=== PATIENT | female | born 1950 | race Caucasian/White ===

== ENCOUNTER 2017-05-24 19:48 | Inpatient (IN) | payer OTHER ==
[~2017-05-24] VITALS: Ht 160 cm; Wt 58.2 kg
--- NOTE | ~2017-05-24 | HC ---
[facility] [place] [address] CONSULTATION Name: NABIL TAFOYA Room #: 443-P [facility] IN M.R.#: [id number] Admission: 05/24/17 Attend Phys: Tarun Agosto DO Discharge: 05/30/17 Date of : 50 Report #: [id number] THIS REPORT FOR: //name// CC: Minda Agosto HISTORY OF PRESENT ILLNESS: This patient is seen regarding abnormal chest CT/likely bronchogenic carcinoma. This 66-year-old white female was transferred from [facility] to further evaluate abnormal chest CT and has undergone bronchoscopy today by Dr. Gutierrez. This reveals endobronchial lesion compatible with malignancy and it has been biopsied, with the results pending at the time of this dictation. Her history is significant for one half to 1 pack of cigarettes daily for the last 50 years. Over the last year, she has lost approximately 60 pounds. She has recently noted increased cough and shortness of breath associated with intermittent speckled hemoptysis. PAST MEDICAL HISTORY: Significant also for prior herniated disk and thoracic spine surgery. She has 3 previous sections. ALLERGIES: SHE IS ALLERGIC TO QUININE AND SULFA, CAUSING HIVES. MEDICATIONS: Include BuSpar, Celexa, Cozaar and Ditropan as listed on the MFR. FAMILY HISTORY: Positive for her father who had what sounds like pulmonary embolism. SOCIAL HISTORY: She is , has 8 children. She lives in [place] and again is a smoker. REVIEW OF SYSTEMS: Negative for any new suspicious palpable masses or pain. PHYSICAL EXAMINATION: HEENT: Shows to be normocephalic. NECK: Supple. CHEST: Shows diminished breath sounds. CARDIOVASCULAR: Normal S1, S2. ABDOMEN: No organomegaly or mass. EXTREMITIES: No clubbing, cyanosis or edema. NEUROLOGIC: No focal localizing signs. PSYCHIATRIC: Not agitated or confused. SKIN: Normal turgor. HOSPITAL COURSE: CT scan shows a large mediastinal mass. ASSESSMENT: At least stage III, likely a bronchogenic carcinoma. [facility] [address] [place] [address] CONSULTATION Name: NABIL TAFOYA Room #: 443-P [facility] IN M.R.#: [id number] Admission: 05/24/17 Attend Phys: Tarun Agosto DO Discharge: 05/30/17 Date of : 50 Report #: [id number] PLAN: We will need to await histology. If this represents small cell lung cancer, we will need to proceed quickly with chemotherapy. If non-small cell lung cancer, awaiting marker studies regarding possible targetable mutation. She needs to be scanned further regarding pathology to rule out other sites of metastatic disease and to complete her staging if lung cancer diagnosis is confirmed. Thanks again for allowing me to see her in consultation and asking me to participate in her care. <ELECTRONICALLY SIGNED> By: Grace Sheikh MD 06/12/17 1239 1629 2315 MD frank Mendoza
--- NOTE | ~2017-05-24 | H ---
[facility] [place] [address] HISTORY AND PHYSICAL Name: NABIL TAFOYA Room #: 443-P ADM IN M.R.#: [id number] Admission: 05/24/17 Attend Phys: Tarun Agosto DO Discharge: Date of : 50 Report #: [id number] THIS REPORT FOR: //name// CC: Minda Agosto ATTENDING PHYSICIAN: Dr. Perales. PRIMARY CARE PHYSICIAN: Minda Rivera DO. CHIEF COMPLAINT: Mediastinal mass. HISTORY OF PRESENT ILLNESS: The patient is a 66-year-old female who was initially sent by her PCP to [place] [facility] due to elevated white blood cell count as well as pneumonia. She has been having a cough for the last 2-3 weeks and had been on oral antibiotics without much improvement. She had a chest x-ray done yesterday showing pneumonia and her white blood cell count was 21,000. She had not been having any fevers or chills. She denied any chest pain with deep breathing. She really was not having any shortness of breath. Her cough was productive with some pale yellow sputum. In the last few days though, she did have a few episodes of pink-tinged sputum. She denies any underlying lung disease such as COPD, but has been a lifelong smoker. In the ER at [place], she was evaluated and was noted to have mildly elevated D-dimer, so she was sent for a CT angio of the chest, which showed a large mediastinal mass that partially obstructs the right main bronchus causing some postobstructive atelectasis and pneumonia. She was given IV antibiotics and sent to [facility] for further cardiothoracic evaluation. She is not in any respiratory distress. PAST MEDICAL HISTORY: Arthritis, GERD, depression, MRSA skin infection, hypertension. PAST SURGICAL HISTORY: times 3, appendectomy, D and C, bilateral cataract repair. ALLERGIES: QUININE AND SULFA. HOME MEDICATIONS: Diovan, BuSpar, Lexapro, ranitidine, oxybutynin. SOCIAL HISTORY: The patient smokes one-half to one pack of cigarettes per day. She has been smoking since the age of 14 or 15. Denies any alcohol or drug use. She lives at home with her spouse. FAMILY HISTORY: Negative for any type of cancer. Her mother had heart problems, but of old age, natural causes at the age of 89. Her father at the age of 50 from an ID. [facility] [address] [place] [address] HISTORY AND PHYSICAL Name: NABIL TAFOYA Room #: 443-P [facility] IN [facility].#: [id number] Admission: 05/24/17 Attend Phys: Tarun Agosto DO Discharge: Date of : 50 Report #: [id number] REVIEW OF SYSTEMS: Twelve point review of systems was reviewed with the patient, otherwise negative unless stated in the HPI. PHYSICAL EXAMINATION: GENERAL: The patient is an alert female in no acute distress. VITAL SIGNS: Temperature is 97.9, heart rate 112, respirations 19, blood pressure 140/83, oxygen 99% on room air. HEENT: PERRLA. Sclerae nonicteric. Oral mucosa is pink and moist. She does have very poor oral dentition with many missing or broken teeth. NECK: Supple, no JVD noted. CARDIOVASCULAR: Normal S1, S2. No murmurs, rubs or gallops. RESPIRATORY: Breath sounds are clear in bilateral upper lobes and the left lobe, but she is very diminished in the right lower lobe. Breathing is nonlabored. She does have a frequent cough. ABDOMEN: Soft, nontender, nondistended with positive bowel sounds. VASCULAR: No edema noted. Pedal pulses are 2+. NEUROLOGIC: The patient is alert and oriented times 3. Speech is clear. She is answering questions appropriately and following commands. No focal neuro deficits noted. SKIN: Intact. No rashes or lesions. LABORATORY DATA AND DIAGNOSTICS: WBC is 23, hemoglobin 10.5, platelets 609. Sodium 126, potassium 3.2, BUN 9, creatinine is 0.6 and glucose 101. Lactate is 1.2. BNP is 1190, calcium level is 10.5. LFTs are within normal limits. Troponins negative. CT angio of the chest was negative for PE. It did show complete atelectasis of the right lower lobe with a partial atelectasis of the right middle lobe with patchy opacities in the right middle lobe, likely postobstructive atelectasis versus pneumonia. There is a large mass in the subcarinal area measuring 8 x 5.6 x 5.7 cm, which partially encases the anterior aspect of the mid to distal trachea and bilateral main bronchus in the right upper lobe pulmonary artery and obliterates the right main bronchus and right middle lobe bronchus. EKG shows no acute findings. ASSESSMENT AND PLAN: 1. Large mediastinal mass. Per radiology, this mass should be able to reach by bronchoscopy, so pulmonary will be consulted. She will need a bronchoscopy for biopsy. It is likely lymphoma versus a primary lung cancer. 2. Postobstructive pneumonia. The patient did have a reaction to Zithromax at [place], so we will start Zosyn and continue to monitor. Check sputum and blood cultures. 3. Ongoing tobacco abuse. The patient has been advised to quit. She is on a nicotine patch. 4. Hyponatremia, maybe related to possible lung cancer, although she has been on Diovan with hydrochlorothiazide. We will gently hydrate and follow labs. 5. Hypokalemia. This will be replaced, follow labs. 6. Hypertension. Blood pressure is stable, continue home medications and [facility] [address] [place] [address] HISTORY AND PHYSICAL Name: NABIL TAFOYA Room #: 443-P [facility] IN [facility].#: [id number] Admission: 05/24/17 Attend Phys: Tarun Agosto DO Discharge: Date of : 50 Report #: [id number] monitor. 7. Leukocytosis, possibly due to pneumonia versus cancer. It was mentioned in [facility]'s records that her white count had been up to 20.5 in the past. Continue antibiotics. 8. Deep venous thrombosis prophylaxis. Place sequential compression devices. We will continue to follow the patient closely throughout the hospitalization and make changes based on clinical status. <ELECTRONICALLY SIGNED> By: CHEY Yo 05/29/17901 0746 2 CHEY Yo /nt
--- NOTE | ~2017-05-24 | CNG ---
[facility] [place] [address] [place] [address] CYTO-NONGYN REPORT PROCEDURE Name: NABIL WRIGHT Room #: 443-P ADM IN M.R.#: [id number] Admission: 05/24/17 Date of : 50 Discharge: Report #: [id number] Path Case #: [id number] CYTOPATHOLOGY REPORT COLLECTION DATE: 05/25/2017 RECEIVED DATE: 05/25/2017 SUBMITTING PHYS: Dr. Christopher Villegas OTHER PHYS: Dr. Tarun Rivera CLINICAL HISTORY: Pneumonia, mediastinal mass SPECIMEN(S) RECEIVED: A.Sputum * * * * * * * * * * * * FINAL DIAGNOSIS: A. Sputum: - No malignant cells identified. Pulmonary macrophages, squamous epithelial cells along with acute and chronic inflammatory cells in a background of debris. PATHOLOGIST: Lynda Nunn M.D. REPORT ELECTRONICALLY SIGNED BY: Lynda Nunn M.D. DATE/TIME: 05/26/2017 13:19 * * * * * * * * * * * * GROSS PATHOLOGY: A. Sputum: The specimen is submitted unfixed, labeled "Nabil Wright". Received by the Cytology Department is three mL of cloudy pink fluid. One ThinPrep slide was prepared. (lg2.) SHIPPING SPECIALIST(S): LONA Beebe(ASCP) INITIAL CPT CODE(S): A; 71844 Professional services performed by [facility] at [facility] [address], [place] [address] Technical services performed by [facility] at [address] [place] [address]., [address], [place] [address]. [facility] [address] [place] [address], [facility] [address] [place], [place] [address] [place] [address] [place] [address] CYTO-NONGYN REPORT PROCEDURE Name: NABIL WRIGHT Room #: 443-P ADM IN M.R.#: [id number] Admission: 05/24/17 Date of : 50 Discharge: Report #: [id number] Path Case #: [id number] PHONE: [phone] DIRECTOR: Jacoby Santos M.D. * * * END OF REPORT * * *
--- NOTE | ~2017-05-24 | CNG ---
[facility] [place] [address] CYTO-NONGYN REPORT PROCEDURE Name: NABIL MITCHELL Room #: 443-P [facility] IN M.R.#: [id number] Admission: 05/24/17 Date of : 50 Discharge: 05/30/17 Report #: [id number] Path Case #: [id number] CYTOPATHOLOGY REPORT COLLECTION DATE: 05/29/2017 RECEIVED DATE: 05/29/2017 SUBMITTING PHYS: Dr. Giuseppe Gutierrez OTHER PHYS: Dr. Tarun Agosto CLINICAL HISTORY: Pneumonia. SPECIMEN(S) RECEIVED: A.Bronchial wash, NOS B.TBNA Fine needle aspiration, Trachea Passes 1-4 C.Brushings, Trachea D.Bronchial brush rinse * * * * * * * * * * * * FINAL DIAGNOSIS: A. Lung, NOS, bronchial wash: - No malignant cells identified. - Bronchial epithelial cells, alveolar macrophages, and squamous cells present. B. Trachea Passes 1-4, TBNA fine needle aspiration: - POSITIVE FOR MALIGNANCY; MALIGNANT CELLS IDENTIFIED WITH FEATURES OF NONSMALL CELL CARCINOMA, SEE COMMENT. - Bronchial epithelial cells, alveolar macrophages, and squamous cells present in a background of blood. C. Trachea, brushings: - POSITIVE FOR MALIGNANCY; MALIGNANT CELLS IDENTIFIED. Atypical cells identified. - Reactive bronchial epithelial cells, macrophages and inflammatory cells present in the background. Reactive bronchial epithelial cells, macrophages and inflammatory cells with rare atypical cells present in a background of blood. D. Lung, bronchial brush rinse: - POSITIVE FOR MALIGNANCY; MALIGNANT CELLS IDENTIFIED. - Reactive bronchial epithelial cells, macrophages as well as inflammatory cells present in the background. 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 Please see separate report for details. Co-review: Slice B0-[address] Velia Salgado. Findings of this case are discussed with Dr. Giuseppe Gutierrez at approximately 09:05 a.m. on 05/31/2017. (IUV:joo; 05/31/2017) PATHOLOGIST: Lynda Nunn M.D. [address] [address] CYTO-NONGYN REPORT PROCEDURE Name: NABIL MITCHELL Room #: 443-P [facility] IN M.R.#: [id number] Admission: 05/24/17 Date of : 50 Discharge: 05/30/17 Report #: [id number] Path Case #: [id number] REPORT ELECTRONICALLY SIGNED BY: Lynda Nunn M.D. DATE/TIME: 05/31/2017 14:01 * * * * * * * * * * * * GROSS PATHOLOGY: A. Bronchial wash, NOS: The specimen is submitted unfixed, labeled "Nabil Mitchell". Received by the Cytology Department is 10 mL of bright red fluid. One ThinPrep slide was prepared. B. TBNA Fine needle aspiration, Trachea Passes 1-4: The specimen is labeled "Nabil Mitchell" and consists of five fixed slides. Ten mL of cloudy fluid in formalin from the needle rinse is also submitted and one formalin fixed cell block was prepared from this material. C. Brushings, Trachea: The specimen is labeled "Nabil Mitchell" and consists of three fixed slides. D. Bronchial brush rinse: The specimen is labeled "Nabil Mitchell E" and consists of a brush tip in fixative. One ThinPrep slide was prepared. (clt 2.12.18) ELECTRIC CONTAINER TESTER(S): LONA Michaels([facility])IAC INITIAL CPT CODE(S): A; 61922 B; 24737, 79729 C; 13626 D; 88761 Professional services performed by [facility] at [facility] [address], [place] [address] Technical services performed by [facility] at [address] [place] [address]., [address], [place] [address]. [facility] [address] [place] [address], [address] [place] [address] PHONE: [phone] DIRECTOR: Jacoby Santos M.D. * * * END OF REPORT * * *
--- NOTE | ~2017-05-24 | P ---
[facility] [place] [address] PROCEDURE REPORT Name: NABIL TAFOYA Room #: 443-P [facility] IN M.R.#: [id number] Admission: 05/24/17 Attend Phys: Tarun Agosto DO Discharge: 05/30/17 Date of : 50 Report #: [id number] THIS REPORT FOR: //name// CC: Minda Vargas DO DATE OF SERVICE: 05/29/2017 PROCEDURE: Bronchoscopy. REASON FOR PROCEDURE: Lung mass, ASA classification class 3. PROCEDURE NOTATION: After discussing risks and benefits of planned procedure with the patient and her daughter, they desired to proceed. After obtaining informed consent, she was brought to prosthetic lab technician 3 where she was placed on continuous cardiopulmonary monitoring and supplemental oxygen. She was then given 4% lidocaine nebulized to anesthetize the upper respiratory tract. Once accomplished, she received conscious sedation. A total of 8 mg of Versed and 50 mcg of fentanyl were titrated during the procedure to provide adequate sedation. Once accomplished, bronchoscope was passed through an oral biteblock until the vocal cords were visualized. 1% lidocaine was instilled in the vocal cords to provide topical anesthesia. Vocal cords moved appropriately both before and after procedure. Bronchoscope was then passed in the trachea, 1% lidocaine was instilled in the tracheobronchial tree bilaterally to provide topical anesthesia. Once complete, airways were surveyed. FINDINGS: Mainstem, lobar, segmental and subsegmental bronchi could not be explored in typical fashion due to distal tracheal mass encompassing the des and the both main stem bronchi. Extensive disease of the right main stem bronchus did not allow passage of the bronchoscope more distally. The left main stem bronchus had significant endobronchial disease. Pictures were taken. The more distal airways appeared patent without any significant disease. Several 19-gauge fine needle aspirates were obtained in the area of the des and sent for cytologic and histopathologic test. Additional cytologic brushes were obtained predominantly in the right side. Several endobronchial biopsies were obtained of the mass. Minimal bleeding noted and the washings of the airway were sent also for cytology. The patient tolerated well. No noted complications. Did require an increase in FiO2 flow. IMPRESSION: Distal tracheal mass encompassing predominantly the right main stem bronchus, but also left mainstem disease noted as well as distal trachea, worrisome for bronchogenic malignancy, particularly small cell or lymphoma. SUGGEST: [address] [address] PROCEDURE REPORT Name: NABIL TAFOYA Room #: 443-P DIS IN M.R.#: [id number] Admission: 05/24/17 Attend Phys: Tarun Agosto DO Discharge: 05/30/17 Date of : 50 Report #: [id number] 1. Await pathology. 2. Continue current therapy. Discussed at length with daughter post procedure. <ELECTRONICALLY SIGNED> By: Giuseppe Gutierrez MD 06/16/17 1452 1046 1626 Giuseppe Gutierrez MD /rosemarie
--- NOTE | ~2017-05-24 | HC ---
[facility] [place] [address] CONSULTATION Name: NABIL TAFOYA Room #: 443-P ADM IN M.R.#: [id number] Admission: 05/24/17 Attend Phys: Tarun Agosto DO Discharge: Date of : 50 Report #: [id number] THIS REPORT FOR: //name// CC: Minda Moreno PULMONARY CONSULTATION REFERRAL PHYSICIAN: Navdeep Perales MD PRIMARY PHYSICIAN: Minda Rivera DO, at [place], [place]. REASON FOR REFERRAL: Mediastinal mass. HISTORY OF PRESENT ILLNESS: The patient is a 66-year-old white female who was transferred from [facility] Emergency Room with an abnormal chest CT. She was subsequently transferred to [facility] for ongoing evaluation and management. A pulmonary consultation was requested regarding abnormal CT chest. The patient smoked most of her life. She smokes 1/2 pack to 1 pack a day. For the past year or so, she noticed gradual weight loss. About a year ago, she weighted 186 pounds. Currently, she weighs about 126 pounds. She stands about 5 feet 4 inches tall. For the past few weeks, she has noticed increasing dyspnea, cough. For the past week, she has developed a right-sided chest discomfort. For the past few days, she has noticed speckled hemoptysis. She was then referred to the Emergency Room by Dr. Rivera. In the ER, the chest x-ray was said to be abnormal. She then had a followup CT chest. I do not have the CT chest for review. No other CT chest was reviewed. The CT chest performed yesterday at [facility] shows a large mediastinal mass encasing multiple mediastinal structures including bilateral right and left main stem bronchus, obliterating the right main stem bronchus, right middle lobe with complete atelectasis involving the right lower lobe. Partial atelectasis also noted in the right middle lobe with postobstructive pneumonia involving the right lower lobe. Small right-sided pleural effusion is seen. Again, I do not have the film for review. On the CT chest angiogram, no evidence of pulmonary embolus. Other incidental findings include atherosclerosis. Degenerative changes involving the thoracic spine is also noted. PAST MEDICAL HISTORY: Notable for degenerative joint disease, tobacco abuse, lifelong. She has a herniated disk involving thoracic spine having some surgery performed in the past. PAST SURGICAL HISTORY: As mentioned above including 3 previous C-sections. [address] [address] CONSULTATION Name: NABIL TAFOYA Room #: 443-P [facility] IN [facility].#: [id number] Admission: 05/24/17 Attend Phys: Tarun Agosto DO Discharge: Date of : 50 Report #: [id number] ALLERGIES: SULFA AND QUININE, both causes hives. MEDICATIONS: Include BuSpar, Celexa, Cozaar, and Ditropan. FAMILY HISTORY: Notable for "clot to the heart" with the father who at the age of 50. Mother at the age of 89. SOCIAL HISTORY: She is , has 8 children. She denies any alcohol use. She has worked in various jobs, but denies any occupational exposure, industrial dust or toxins. She lives in [place], [place]. REVIEW OF SYSTEMS: As mentioned above, otherwise 10-point system review negative. PHYSICAL EXAMINATION: GENERAL: She is awake, alert, in no apparent distress. VITAL SIGNS: Temperature is 98.6 degrees Fahrenheit, pulse is 70, respiratory rate is 20, blood pressure 130/76 mmHg, saturation 94% on room air. HEENT: Normocephalic, atraumatic. NECK: Supple, without lymphadenopathy or thyromegaly. CHEST: Breath sounds are decreased in the right lung field. Few scattered crackles. No wheezes. Left lung reddy are clear. CARDIOVASCULAR: Normal S1, S2. No murmurs or gallop. There is no JVD, no carotid bruit. Pulses are 2+/4+ bilaterally. ABDOMEN: Soft, nontender, no organomegaly or masses felt. GENITOURINARY: Deferred. RECTAL: Deferred. EXTREMITIES: No cyanosis, clubbing or edema. NEUROLOGIC: Grossly intact. LABORATORY DATA: Again, I do not have the chest x-ray or CT chest for review. Her rest of the laboratory data is pending. IMPRESSION: 1. Large mediastinal mass in this 66-year-old white female. She has had a gradual weight loss over the past year, now with hemoptysis. Bronchogenic carcinoma is suspected. 2. Possible postobstructive pneumonia. 3. Tobacco abuse. 4. Apparent history of hypertension. RECOMMENDATIONS: We will request CT chest for review. We will continue current antibiotics to treat for presumed postobstructive pneumonia. We will proceed with diagnostic bronchoscopy after I had a chance to review the CT chest. [facility] [address] [place] [address] CONSULTATION Name: NABIL TAFOYA Room #: 443-P ADM IN M.R.#: [id number] Admission: 05/24/17 Attend Phys: Tarun Agosto DO Discharge: Date of : 50 Report #: [id number] These were discussed with the patient. She voices understanding. DVT and GI prophylaxis will be recommended. Thank you for this consultation. <ELECTRONICALLY SIGNED> By: Christopher Villegas MD 05/29/17 1458 1120 00 Christopher Villegas MD /nt
--- NOTE | ~2017-05-24 | S ---
[facility] [place] [address] [place] [address] SURGICAL PATH RPT PROCEDURE Name: NABIL MITCHELL Room #: 443-P DIS IN M.R.#: [id number] Admission: 05/24/17 Date of : 50 Discharge: 05/30/17 Report #: [id number] Path Case #: [id number] PATHOLOGY REPORT COLLECTION DATE: 05/29/2017 RECEIVED DATE: 05/30/2017 SUBMITTING PHYS: Dr. Giuseppe Gutierrez OTHER PHYS: Dr. Tarun Sheikh M.D. SPECIMEN(S) RECEIVED: A.Biopsy forceps trachea * * * * * * * * * * * * FINAL DIAGNOSIS: Trachea, biopsy: - MODERATELY-DIFFERENTIATED INVASIVE SQUAMOUS CELL CARCINOMA (PLEASE SEE COMMENT). COMMENT: Examination shows a moderately differentiated nonsmall cell carcinoma. Immunohistochemical stains are performed. (Block A1) AE1/AE3 - strong membranous reactivity present P40 - strong nuclear reactivity present TTF-1 nonreactive within the malignant cells Co-review: Dr. Velia Salgado. The findings are discussed with Dr. Giuseppe Gutierrez at 9:05 a.m. on 05/31/17. The concurrent cytology, [id number], showed similar findings. Please see separate report for complete details. (IUV:mml; 05/31/2017) PATHOLOGIST: Lynda Nunn M.D. REPORT ELECTRONICALLY SIGNED BY: Lynda Nunn M.D. DATE/TIME: 05/31/2017 13:56 * * * * * * * * * * * * GROSS PATHOLOGY: Received in formalin labeled "Nabil Mitchell, biopsy trachea" and consists of multiple brown soft tissue fragments aggregating to 0.4 x 0.3 x 0.2 cm. Specimen is entirely submitted as A1. (FRIEDA; 05/30/2017) [facility] [address] [place] [address] SURGICAL PATH RPT PROCEDURE Name: NABIL MITCHELL Room #: 443-P DIS IN M.R.#: [id number] Admission: 05/24/17 Date of : 50 Discharge: 05/30/17 Report #: [id number] Path Case #: [id number] CLINICAL HISTORY: Pneumonia INITIAL CPT CODE(S): A; 98535, 24587, 89816, 55188, 02364, 25327(2), 10371, 97344(2), 98555, 64913 Professional services performed by [facility] at [facility] [address] [place] [address] Technical services performed by [facility] at [address] [place] [address], [address], [place] [address]. PROCEDURE REPORT (Order Date: 06/03/2017 00:00) COMMENT: The slides were marked for testing, and sent at the request of Dr. Grace Sheikh. ALK testing was performed by [facility] on block A1. Please see SCANNED IMAGES under LABORATORY for separate report of results. (IUV:amj; d/t: 06/06/2017) PATHOLOGIST: Lynda Nunn M.D. REPORT ELECTRONICALLY SIGNED BY: Lynda Nunn M.D. DATE/TIME: 06/07/2017 12:02 PROCEDURE REPORT (Order Date: 06/03/2017 00:00) COMMENT: The slides were marked for testing, and sent at the request of Dr. Grace Sheikh. ROS1 testing was performed by [facility] on block A1. Please see SCANNED IMAGES under LABORATORY for separate report of results. (IUV:amj; d/t: 06/07/2017) PATHOLOGIST: Lynda Nunn M.D. REPORT ELECTRONICALLY SIGNED BY: Lynda Nunn M.D. DATE/TIME: 06/07/2017 14:09 PROCEDURE REPORT (Order Date: 06/03/2017 00:00) COMMENT: The slides were marked for testing, and sent at the request of Dr. Grace Sheikh. PD-L1 testing was performed by [facility] on block A1. Please see SCANNED IMAGES under LABORATORY for separate report of results. (IUV:amwilly; d/t: 06/07/2017) PATHOLOGIST: Lynda Nunn M.D. REPORT ELECTRONICALLY SIGNED BY: Lynda Nunn M.D. DATE/TIME: 06/07/2017 16:17 PROCEDURE REPORT (Order Date: 06/03/2017 00:00) COMMENT: The slides were marked for testing, and sent at the request of Dr. Grace Sheikh. BRAF testing was performed by [facility] [address] [address] SURGICAL PATH RPT PROCEDURE Name: NABIL MITCHELL Room #: 443-P DIS IN M.R.#: [id number] Admission: 05/24/17 Date of : 50 Discharge: 05/30/17 Report #: [id number] Path Case #: [id number] on block A1. Please see SCANNED IMAGES under LABORATORY for separate report of results. (IUV:amj; d/t: 06/12/2017) PATHOLOGIST: Lynda Nunn M.D. REPORT ELECTRONICALLY SIGNED BY: Lynda Nunn M.D. DATE/TIME: 06/12/2017 13:51 [facility] [address] [place] [address] PHONE: [phone] DIRECTOR: Jacoby Santos M.D. * * * END OF REPORT * * *
--- NOTE | ~2017-05-24 | 2DMMODE ---
[facility] [address] [place] [address] 2 D/M-MODE ECHOCARDIOGRAM Name: NABIL TAFOYA Room #: 443-P [facility] IN M.R.#: [id number] Admission: 05/24/17 Attend Phys: Tarun Agosto, Discharge: Date of : 50 Date of Service: 05/25/17 1417 Report #: [id number] THIS REPORT FOR: //name// APPROVED REPORT Study performed: 05/25/2017 12:33:38 EXAM: Comprehensive 2D, Doppler, and color-flow Echocardiogram Patient Location: Bedside Room #: 443 Status: routine BSA: 1.58 HR: 76 bpm BP: 131/76 mmHg Other Information Study Quality: Technically Difficult Technically limited study due to lung disease. Short axis images obtained from subcostal window. Indications Dyspnea Hypertension/HDD 2D Dimensions RVDd: 37.23 mm LVEF(%): 54.61 (>50%) IVSd: 10.26 (7-11mm) LVOT Diam: 19.16 (18-24mm) LVDd: 42.80 mm PWd: 10.34 (7-11mm) LVDs: 30.79 (25-40mm) Aortic Root: 29.77 mm IVC: 14.00 mm Gregory's LVEF: 54.61 % Volumes Left Atrial Volume (Systole) Single Plane 4CH: 107.93 mL Single Plane 2CH: 61.26 mL LA ESV Index: 58.00 mL/m2 Aortic Valve AoV Peak Robert.: 1.55 m/s AO Peak Gr.: 9.67 mmHg LVOT Max P.84 mmHg LVOT Max V: 0.98 m/s PRICILA Vmax: 1.82 cm2 Mitral Valve [facility] [place] [place] [address] 2 D/M-MODE ECHOCARDIOGRAM Name: NABIL TAFOYA Room #: 443-P [facility] IN ..#: [id number] Admission: 05/24/17 Attend Phys: Tarun Agosto, Discharge: Date of : 50 Date of Service: 05/25/17 1417 Report #: [id number] E/A Ratio: 0.9 MV Decel. Time: 240.20 ms MV E Max Robert.: 0.84 m/s MV A Robert.: 0.90 m/s MV PHT: 69.66 ms IVRT: 114.76 ms Pulmonary Valve PV Peak Robert.: 0.93 m/s PV Peak Gr.: 3.45 mmHg Pulmonary Vein P Vein S: 0.71 m/s P Vein A: 0.25 m/s P Vein D: 0.42 m/s P Vein A Dur.: 120.0 msec P Vein S/D Ratio: 1.69 Tricuspid Valve TR Peak Robert.: 2.99 m/s RAP Estimate: 5.00 mmHg TR Peak Gr.: 35.65 mmHg PA Pressure: 41.00 mmHg Left Ventricle The left ventricle is normal size. There is normal left ventricular wall thickness. The left ventricular systolic function is normal. The left ventricular ejection fraction is within the normal range. LVEF is 55%. Transmitral Doppler flow pattern suggests impaired LV relaxation. Right Ventricle Right ventricle is at the upper limits of normal. The right ventricular systolic function is normal. Atria Left atrium is dilated. The right atrium size is normal. Aortic Valve Aortic valve leaflets are mildly thickened. No aortic regurgitation is present. There is no aortic valvular stenosis. Mitral Valve The mitral valve is normal in structure. Mild mitral regurgitation. No evidence of mitral valve stenosis. Tricuspid Valve The tricuspid valve is normal in structure. Mild tricuspid regurgitation. PAP is estimated at 41 mmHg. [facility] [address] [place] [address] 2 D/M-MODE ECHOCARDIOGRAM Name: NABIL TAFOYA Room #: 443-P [facility] IN [facility]#: [id number] Admission: 05/24/17 Attend Phys: Tarun Agosto, Discharge: Date of : 50 Date of Service: 05/25/17 1417 Report #: [id number] Pulmonic Valve The pulmonary valve is normal in structure. Trace to mild pulmonic regurgitation. Great Vessels The aortic root is normal in size. IVC is normal in size and collapses >50% with inspiration. Pericardium There is no pericardial effusion. <Conclusion> The left ventricle is normal size. LVEF is 55%. Left atrium is dilated. Aortic valve leaflets are mildly thickened. No aortic regurgitation is present. There is no aortic valvular stenosis. The mitral valve is normal in structure. Mild mitral regurgitation. The tricuspid valve is normal in structure. Mild tricuspid regurgitation. PAP is estimated at 41 mmHg. The pulmonary valve is normal in structure. Trace to mild pulmonic regurgitation. There is no pericardial effusion. <ELECTRONICALLY SIGNED> By: Uvaldo Alfaro MD 05/25/17 1417 1417 141 Uvaldo Alfaro MD /INF
[2017-05-25 02:05] VITALS: BP 130/75
[2017-05-25 03:07] VITALS: BP 112/66
[2017-05-25 03:10] VITALS: BP 112/66
[2017-05-25 04:50] VITALS: BP 108/60
[2017-05-25 05:32] LABS: URINE BILIRUBIN NEGATIVE (Negative); URINE BLOOD NEGATIVE (Negative); URINE CLARITY CLEAR; URINE COLOR YELLOW; URINE GLUCOSE-RANDOM* NEGATIVE (Negative); URINE KETONES NEGATIVE (Negative); URINE LEUKOCYTES NEGATIVE (Negative); URINE NITRITE NEGATIVE (Negative); URINE PROTEIN (DIPSTICK) NEGATIVE (Negative); URINE UROBILINOGEN 0.2 E.U./dl (0.2-1.0)
[2017-05-25 08:25] VITALS: BP 131/76
[2017-05-25 17:38] LABS: BE(vivo) 3.6 mmol/L (-2 to +3); HCO3 26.6 mmol/L (22.0-26.0); PO2 71.8 mmHg (80.0-100.0); pH 7.511 (7.360-7.450); sO2 95.9 % (92.0-98.0)
[2017-05-25 22:52] VITALS: BP 108/72
[2017-05-26 04:34] VITALS: BP 120/72
[2017-05-26 05:41] LABS: HEMATOCRIT 25.3 % (37.0-47.0); HEMOGLOBIN 8.5 gm/dL (12.0-15.0); MCH 30.3 pg (26.0-34.0); MCHC 33.6 g/dL (28.0-37.0); MCV 90.1 fL (80.0-100.0); RBC 2.81 mil/uL (4.20-5.00); RDW 15.8 % (10.5-14.5); WBC 17.5 thou/uL (4.0-11.0)
[2017-05-26 05:59] LABS: ALBUMIN 1.7 g/dL (3.4-5.0); CALCIUM 8.5 mg/dL (8.5-10.1); CREATININE 0.8 mg/dL (0.6-1.0); POTASSIUM 3.6 mmol/L (3.5-5.1); TOTAL BILIRUBIN 0.2 mg/dL (<0.1-1.0); TOTAL PROTEIN 5.5 g/dL (6.4-8.2)
[2017-05-26 06:02] LABS: INR 1.1; PROTIME 11.1 Seconds (9.3-11.4)
[2017-05-26 08:00] VITALS: BP 109/62
[2017-05-26 09:57] VITALS: BP 109/62
[2017-05-26 16:00] VITALS: BP 126/69
[2017-05-26 19:32] VITALS: BP 135/73
[2017-05-27 07:30] VITALS: BP 152/93
[2017-05-27 08:20] VITALS: BP 135/82
[2017-05-27 15:54] VITALS: BP 135/82
[2017-05-27 19:09] VITALS: BP 120/75
[2017-05-28 03:39] VITALS: BP 143/83
[2017-05-28 05:29] LABS: HEMATOCRIT 29.7 % (37.0-47.0); HEMOGLOBIN 9.9 gm/dL (12.0-15.0); MCH 29.9 pg (26.0-34.0); MCHC 33.3 g/dL (28.0-37.0); MCV 89.9 fL (80.0-100.0); PLATELET COUNT 555 thou/uL (150-400); RBC 3.31 mil/uL (4.20-5.00); WBC 13.5 thou/uL (4.0-11.0)
[2017-05-28 05:34] LABS: CALCIUM 9.2 mg/dL (8.5-10.1); CREATININE 0.7 mg/dL (0.6-1.0); POTASSIUM 3.8 mmol/L (3.5-5.1)
[2017-05-28 09:10] LABS: ABSOLUTE NEUTROPHILS 10.3 thou/uL (1.4-8.2)
[2017-05-28 09:11] LABS: ANISOCYTOSIS 1+
[2017-05-28 09:39] VITALS: BP 134/78
[2017-05-28 18:49] VITALS: BP 127/71
[2017-05-29 04:30] VITALS: BP 129/68
[2017-05-29 06:41] LABS: ABSOLUTE NEUTROPHILS 8.1 thou/uL (1.4-8.2); BASOPHILS 0.6 % (0.0-2.0); EOSINOPHILS 4.9 % (0.0-3.0); HEMATOCRIT 29.8 % (37.0-47.0); HEMOGLOBIN 10.1 gm/dL (12.0-15.0); LYMPHOCYTES 21.3 % (24.0-44.0); MCH 30.5 pg (26.0-34.0); MCHC 33.9 g/dL (28.0-37.0); MCV 90.2 fL (80.0-100.0); MONOCYTES 10.9 % (1.0-8.0); PLATELET COUNT 542 thou/uL (150-400); POLYS 62.3 % (36.0-66.0); RDW 16.8 % (10.5-14.5)
[2017-05-29 06:52] LABS: CALCIUM 9.1 mg/dL (8.5-10.1); CREATININE 0.9 mg/dL (0.6-1.0); POTASSIUM 3.7 mmol/L (3.5-5.1)
[2017-05-29 07:15] VITALS: BP 124/63
[2017-05-29 15:35] VITALS: BP 137/74
[2017-05-29 20:03] VITALS: BP 111/65
[2017-05-30 03:09] VITALS: BP 122/86
[2017-05-30 06:04] LABS: ABSOLUTE NEUTROPHILS 7.6 thou/uL (1.4-8.2); BASOPHILS 0.4 % (0.0-2.0); EOSINOPHILS 5.4 % (0.0-3.0); HEMATOCRIT 30.5 % (37.0-47.0); HEMOGLOBIN 10.1 gm/dL (12.0-15.0); LYMPHOCYTES 23.3 % (24.0-44.0); MCH 29.8 pg (26.0-34.0); MCV 90.3 fL (80.0-100.0); MONOCYTES 10.3 % (1.0-8.0); PLATELET COUNT 568 thou/uL (150-400); POLYS 60.6 % (36.0-66.0); RBC 3.38 mil/uL (4.20-5.00); RDW 16.6 % (10.5-14.5); WBC 12.6 thou/uL (4.0-11.0)
[2017-05-30 06:13] LABS: CALCIUM 9.8 mg/dL (8.5-10.1); CREATININE 0.7 mg/dL (0.6-1.0); POTASSIUM 3.9 mmol/L (3.5-5.1)
[2017-05-30 07:56] VITALS: BP 120/80
[2017-05-30 08:04] VITALS: BP 136/82
[2017-05-30 10:00] VITALS: BP 120/80
[2017-05-30 11:31] VITALS: BP 120/80
[2017-05-30] MEDS ORDERED: AUGMENTIN 875-1 EACH PO (14:07)
== END 2017-05-30 15:36 | disposition home or self-care (01) | DRG 177 ==
LOC: 4S 19:48 → ENTRNSPT 05-30 15:24 → EDTRNSPTSTS 05-30 15:26 → 4S 05-30 15:36
PROVIDERS: Family Medicine; Internal Medicine Pulmonary Disease; Nurse Practitioner Acute Care
DX: J69.0 Pneumonitis due to inhalation of food and vomit (principal); J96.01 Acute respiratory failure with hypoxia; E43 Unspecified severe protein-calorie malnutrition; E87.1 Hypo-osmolality and hyponatremia; R22.2 Localized swelling, mass and lump, trunk; I10 Essential (primary) hypertension; M19.90 Unspecified osteoarthritis, unspecified site; K21.9 Gastro-esophageal reflux disease without esophagitis; K02.9 Dental caries, unspecified; F32.9 Major depressive disorder, single episode, unspecified; E87.6 Hypokalemia; F17.210 Nicotine dependence, cigarettes, uncomplicated; Z98.891 History of uterine scar from previous surgery; Z79.899 Other long term (current) drug therapy; Z71.6 Tobacco abuse counseling; Z90.49 Acquired absence of other specified parts of digestive tract; Z98.42 Cataract extraction status, left eye; Z98.41 Cataract extraction status, right eye; Z88.1 Allergy status to other antibiotic agents; Z88.2 Allergy status to sulfonamides; Z82.49 Family history of ischemic heart disease and other diseases of the circulatory system
CPT/HCPCS: 10100

== ENCOUNTER 2017-07-30 14:26 | Inpatient (IN) | payer OTHER ==
[~2017-07-30] VITALS: Ht 160 cm; Wt 57.6 kg
--- NOTE | ~2017-07-30 | HC ---
[facility] [place] [address] [place] [address] CONSULTATION Name: NABIL TAFOYA Room #: 420-P [facility] IN ..#: [id number] Admission: 07/30/17 Attend Phys: Chester Askew MD Discharge: 08/07/17 Date of : 50 Report #: [id number] THIS REPORT FOR: //name// CC: Minda Askew HISTORY OF PRESENT ILLNESS: This patient was originally seen in May when she was found to have a large mediastinal mass and the subsequent diagnosis of squamous cell carcinoma of the lung. Her cancer was highly expressive for PD-L1 and negative for other mutations that has now received 2 cycles of Keytruda as a checkpoint inhibitor therapy. Her second treatment was administered on 07/14/2017. She has been readmitted with fever and leukocytosis and obstructive pneumonia. Her history is significant for approximately 60-pound weight loss over the past year. She has smoked a pack of cigarettes per day for the last 50 years and has had marked increase in shortness of breath. PAST MEDICAL HISTORY: Significant for prior herniated disk and thoracic spine surgery. She has had 3 previous sections. ALLERGIES: QUININE, SULFA CAUSING HIVES. MEDICATIONS: Include BuSpar, Celexa, Cozaar, and ____. FAMILY HISTORY: Positive for father having pulmonary embolism. SOCIAL HISTORY: She lives in [place], is and has 8 children. REVIEW OF SYSTEMS: System review is as in the history of present illness. PHYSICAL EXAMINATION: GENERAL: Shows her to be normocephalic appearing older than her stated age. NECK: Supple. CHEST: Shows diminished breath sounds. CARDIOVASCULAR: Normal S1, S2. ABDOMEN: No organomegaly or mass. EXTREMITIES: No clubbing, cyanosis or edema. NEUROLOGIC: No focal localizing signs. PSYCHIATRIC: Not agitated or confused. SKIN: Normal turgor. LYMPHATICS: No palpable supraclavicular adenopathy. ASSESSMENT: Stage 4 bronchogenic carcinoma. PLAN: As discussed earlier with Dr. Villegas it is too early to assess response from her current immune checkpoint inhibitor therapy. As she does have obstruction [facility] [address] [place] [address] CONSULTATION Name: NABIL TAFOYA Room #: 420-P [facility] IN ..#: [id number] Admission: 07/30/17 Attend Phys: Chester Askew MD Discharge: 08/07/17 Date of : 50 Report #: [id number] leading to her pneumonia, we have discussed possible stenting or radiation therapy. Post discharge, I have scheduled her to be seen in consultation for radiation consultation. I have discussed these recommendations and she is willing to proceed as outlined. Thanks again for notifying us of her hospitalization and allowing me to participate in her care. By: 1451 17 Grace Sheikh MD /nt
--- NOTE | ~2017-07-30 | HC ---
[facility] [place] [address] [place] [address] CONSULTATION Name: NABIL TAFOYA Room #: 420-P ADM IN M.R.#: [id number] Admission: 07/30/17 Attend Phys: Tarun Agosto DO Discharge: Date of : 50 Report #: [id number] THIS REPORT FOR: //name// CC: DR RICARDO Agosto DATE OF SERVICE: 08/01/2017 REFERRING PROVIDER: Dr. Tarun Agosto. REASON FOR CONSULTATION: Pneumonia. HISTORY OF PRESENT ILLNESS: Our group was asked to see the patient in consultation while hospitalized at [facility], has been followed by Dr. Villegas of our group. She is an unfortunate 66-year-old woman with an advanced stage squamous cell carcinoma of the lung with a large mediastinal mass that had been biopsy proven squamous cell and had been on chemotherapy with Keytruda, but about 2 days ago, started to have increasing shortness of breath, cough productive of yellow sputum, difficulty clearing secretions, presented to the hospital in [place], [place], was found to be a little hypoxemic despite using supplemental oxygen. This is titrated up to currently at 5 liters. Denies any fevers, chills or sweats. No recent radiation therapy. Typically, she is on inhaled therapy for her COPD including albuterol inhaler, aerosol treatments with DuoNebs since hospital admission 2 days ago and placed on systemic steroids, bronchodilators and antibiotics. Cultures have grown methicillin-resistant Staphylococcus aureus. She has been on appropriate therapy with vancomycin, but has not noted any significant improvement. Continues to have some stridor and feels her dyspnea is worse than on admission. ALLERGIES: INCLUDE SULFA, TYLENOL AND QUININE. PAST MEDICAL HISTORY: 1. Presumed stage 4 squamous cell carcinoma of the lung. 2. History of chronic obstructive pulmonary disease, most recent spirometry revealed an FEV1 of 1 liter or 48% of predicted. 3. Hypertension. 4. Chronic back pain. CURRENT MEDICATIONS: 1. Albuterol inhaler p.r.n. 2. DuoNeb p.r.n. 3. BuSpar 15 mg daily. 4. Calcium carbonate. 5. Cranberry. [facility] [address] [place] [address] CONSULTATION Name: NABIL TAFOYA Room #: 420-P [facility] IN [facility].#: [id number] Admission: 07/30/17 Attend Phys: Tarun Agosto DO Discharge: Date of : 50 Report #: [id number] 6. Lexapro 30 mg daily. 7. Nexium 40 mg daily. 8. Hydrocodone p.r.n. 9. Levaquin is on hold. 10. Magnesium. 11. Oxybutynin. 12. Carafate. 13. Diovan. SOCIAL HISTORY: The patient is an ex-smoker, quitting 2 months ago. No significant alcohol consumption. FAMILY HISTORY: Negative for any significant pulmonary disease. REVIEW OF SYSTEMS: CONSTITUTIONAL: No fever, chills, sweats. ENT: Some upper respiratory congestion, dental caries. CARDIOVASCULAR: Notes some chest discomfort associated with the shortness of breath. GASTROINTESTINAL: No nausea, vomiting at present. Had some nausea initially on admission, has resolved. GENITOURINARY: No dysuria, no frequency, hematuria. INTEGUMENT: Denies any new rash. MUSCULOSKELETAL: No new joint pains or swelling. Rest of 12 point review of systems is negative or as described in HPI. PHYSICAL EXAMINATION: VITAL SIGNS: Temperature is afebrile, pulse 100 and regular, respiratory rate 18, blood pressure 115/65, oxygen saturation 94% on 5 liters nasal cannula. GENERAL: This is an elderly woman, does not appear in any distress at rest. HEENT: Multiple dental caries noted. NECK: Supple, no lymphadenopathy. LUNGS: Diffuse stridorous breath sounds. CARDIOVASCULAR: Heart regular. No murmurs noted. ABDOMEN: Soft, nontender, no masses. EXTREMITIES: Without edema. They are warm with 2+ pulses. LABORATORY DATA: White blood cell count 10,000, hemoglobin 10, hematocrit 30, platelet count of 267. Sodium 135, potassium 3.6, chloride 100, bicarbonate 29, BUN 10, creatinine 0.8, glucose 78, calcium is 10.4. Sputum culture growing Staphylococcus aureus, suspicious for MRSA. Chest x-ray reveals again no significant change from prior scans with right lower lobe volume loss and widened mediastinum. IMPRESSION: 1. Methicillin-resistant Staphylococcus aureus pneumonia. [address] [address] CONSULTATION Name: MICHELETNABIL E Room #: 420-P ADM IN M.R.#: [id number] Admission: 07/30/17 Attend Phys: Tarun Agosto DO Discharge: Date of : 50 Report #: [id number] 2. Chronic obstructive pulmonary disease with acute exacerbation. 3. Squamous cell carcinoma with concern for metastases. 4. History of hypertension. SUGGESTIONS: 1. Followup CT imaging of the chest. 2. Add IPV to assist with airway clearance. The patient may need bronchoscopy to further evaluate and manage. 3. Continue with current antibiotic therapy. Consider infectious disease consultation. 4. Systemic steroids with taper. 5. Additional recommendations pending results of above. The patient's care to be assumed by Dr. Villegas tomorrow from our standpoint. By: 1312 1432 Giuseppe Gutierrez MD /nt
[~2017-07-30 14:26] MED LIST: AUGMENTIN 875-1 EACH PO
[2017-07-30 20:00] VITALS: BP 130/80
[2017-07-31] VITALS: BP 98/58
[2017-07-31 04:00] VITALS: BP 117/75
[2017-07-31 06:57] LABS: HEMATOCRIT 31.5 % (37.0-47.0); HEMOGLOBIN 10.6 gm/dL (12.0-15.0); MCH 31.4 pg (26.0-34.0); MCHC 33.7 g/dL (28.0-37.0); MCV 93.1 fL (80.0-100.0); RBC 3.38 mil/uL (4.20-5.00); RDW 15.5 % (10.5-14.5)
[2017-07-31 07:19] LABS: ALBUMIN 2.5 g/dL (3.4-5.0); CALCIUM 10.9 mg/dL (8.5-10.1); CREATININE 0.9 mg/dL (0.6-1.0); POTASSIUM 3.5 mmol/L (3.5-5.1); TOTAL BILIRUBIN 0.4 mg/dL (<0.1-1.0); TOTAL PROTEIN 6.6 g/dL (6.4-8.2)
[2017-07-31 07:27] VITALS: BP 120/70
[2017-07-31 15:46] VITALS: BP 108/52
[2017-07-31 20:00] VITALS: BP 113/76
[2017-08-01 00:33] LABS: HEMATOCRIT 29.5 % (37.0-47.0); MCH 31.4 pg (26.0-34.0); MCHC 33.8 g/dL (28.0-37.0); MCV 92.8 fL (80.0-100.0); RBC 3.17 mil/uL (4.20-5.00); RDW 15.3 % (10.5-14.5); WBC 10.1 thou/uL (4.0-11.0)
[2017-08-01 00:41] LABS: CALCIUM 10.4 mg/dL (8.5-10.1); CREATININE 0.8 mg/dL (0.6-1.0); POTASSIUM 3.6 mmol/L (3.5-5.1)
[2017-08-01 04:00] VITALS: BP 114/70
[2017-08-01 07:15] VITALS: BP 115/64
[2017-08-01 15:02] VITALS: BP 104/64
[2017-08-01 18:14] LABS: URINE BILIRUBIN NEGATIVE (Negative); URINE BLOOD NEGATIVE (Negative); URINE CLARITY CLEAR; URINE COLOR YELLOW; URINE GLUCOSE-RANDOM* NEGATIVE (Negative); URINE KETONES TRACE (Negative); URINE LEUKOCYTES NEGATIVE (Negative); URINE NITRITE NEGATIVE (Negative); URINE PROTEIN (DIPSTICK) NEGATIVE (Negative); URINE SPECIFIC GRAVITY 1.025 (1.005-1.035); URINE UROBILINOGEN 0.2 E.U./dl (0.2-1.0)
[2017-08-01 19:24] VITALS: BP 125/75
[2017-08-01 20:54] LABS: BASOPHILS 0.2 % (0.0-2.0); HEMATOCRIT 31.5 % (37.0-47.0); HEMOGLOBIN 10.7 gm/dL (12.0-15.0); LYMPHOCYTES 6.9 % (24.0-44.0); MCH 31.4 pg (26.0-34.0); MCHC 34.1 g/dL (28.0-37.0); MONOCYTES 0.8 % (1.0-8.0); PLATELET COUNT 280 thou/uL (150-400); POLYS 92.1 % (36.0-66.0); RBC 3.42 mil/uL (4.20-5.00); RDW 15.1 % (10.5-14.5); WBC 7.6 thou/uL (4.0-11.0)
[2017-08-02 03:40] VITALS: BP 123/82
[2017-08-02 07:15] VITALS: BP 127/85
[2017-08-02 16:52] LABS: BE(vivo) 3.8 mmol/L (-2 to +3); HCO3 27.6 mmol/L (22.0-26.0); PCO2 38.7 mmHg (35.0-45.0); PO2 85.8 mmHg (80.0-100.0); pH 7.471 (7.360-7.450)
[2017-08-02 20:00] VITALS: BP 127/84
[2017-08-03 04:30] VITALS: BP 113/76
[2017-08-03 06:04] LABS: HEMATOCRIT 30.2 % (37.0-47.0); HEMOGLOBIN 10.2 gm/dL (12.0-15.0); MCH 31.1 pg (26.0-34.0); MCHC 33.9 g/dL (28.0-37.0); MCV 91.8 fL (80.0-100.0); RBC 3.29 mil/uL (4.20-5.00); RDW 15.4 % (10.5-14.5); WBC 7.9 thou/uL (4.0-11.0)
[2017-08-03 06:07] LABS: CALCIUM 9.6 mg/dL (8.5-10.1); CREATININE 0.8 mg/dL (0.6-1.0)
[2017-08-03 06:15] LABS: POTASSIUM 2.9 mmol/L (3.5-5.1)
[2017-08-03 08:31] VITALS: BP 124/75
[2017-08-03 17:29] VITALS: BP 128/72
[2017-08-03 19:35] VITALS: BP 123/71
[2017-08-04 04:21] VITALS: BP 123/75
[2017-08-04 06:14] LABS: ALBUMIN 2.4 g/dL (3.4-5.0); CALCIUM 9.4 mg/dL (8.5-10.1); CREATININE 0.8 mg/dL (0.6-1.0); PHOSPHORUS 2.4 mg/dL (2.5-4.9)
[2017-08-04 06:16] LABS: POTASSIUM 3.9 mmol/L (3.5-5.1)
[2017-08-04 07:40] VITALS: BP 139/79
[2017-08-04 19:10] VITALS: BP 118/68
[2017-08-05 03:19] VITALS: BP 135/84
[2017-08-05 07:32] VITALS: BP 129/66
[2017-08-05 19:45] VITALS: BP 119/69
[2017-08-06 03:10] VITALS: BP 131/71
[2017-08-06 07:50] VITALS: BP 132/78
[2017-08-06 07:57] LABS: CALCIUM 8.8 mg/dL (8.5-10.1); CREATININE 0.7 mg/dL (0.6-1.0); POTASSIUM 3.8 mmol/L (3.5-5.1)
[2017-08-06] MEDS ORDERED: COZAAR 50 MG TA50 M1 PO (09:15)
[2017-08-06] MEDS ORDERED: DUONEB 2.5-0.5 M3 ML INH (09:15)
[2017-08-06] MEDS ORDERED: ACETAMINOPHEN325 M1 PO (09:15)
[2017-08-06] MEDS ORDERED: GUAIFENESIN/COD10 M1 PO (09:16)
[2017-08-06] MEDS ORDERED: BUSPIRONE HCL5 MG PO (09:16)
[2017-08-06] MEDS ORDERED: CELEXA 20 MG TA20 MG PO (09:16)
[2017-08-06] MEDS ORDERED: OXYBUTYNIN 5 MG5 M1 PO (09:16)
[2017-08-06] MEDS ORDERED: MUCINEX600 MG PO (09:16)
[2017-08-06] MEDS ORDERED: PREDNISONE 5 MG5 M1 PO (09:17)
[2017-08-06] MEDS ORDERED: LINEZOLID600 MG PO (09:18)
[2017-08-06] MEDS ORDERED: OXYCODONE HCL 55 MG PO (09:22)
[2017-08-06] MEDS ORDERED: PANTOPRAZOLE SO40 M1 PO (09:22)
[2017-08-06 16:00] VITALS: BP 122/64
[2017-08-06 19:14] VITALS: BP 122/77
[2017-08-07 04:08] VITALS: BP 151/87
[2017-08-07 07:34] VITALS: BP 117/67
[2017-08-07 08:42] VITALS: BP 117/67
[2017-08-07] MEDS ORDERED: FLONASE 0.05%50 MCG NASAL (10:15)
== END 2017-08-07 13:03 | disposition home or self-care (01) | DRG 177 ==
LOC: 4S 14:26 → 4E 19:23 → ENTRNSPT 08-07 12:42 → EDTRNSPTSTS 08-07 12:46 → 4E 08-07 13:03
PROVIDERS: Hospitalist; Internal Medicine Pulmonary Disease; Nurse Practitioner Family
DX: J15.6 Pneumonia due to other Gram-negative bacteria (principal); J96.21 Acute and chronic respiratory failure with hypoxia; E43 Unspecified severe protein-calorie malnutrition; J44.1 Chronic obstructive pulmonary disease with (acute) exacerbation; E44.0 Moderate protein-calorie malnutrition; C34.90 Malignant neoplasm of unspecified part of unspecified bronchus or lung; J90 Pleural effusion, not elsewhere classified; J44.0 Chronic obstructive pulmonary disease with (acute) lower respiratory infection; I10 Essential (primary) hypertension; G89.29 Other chronic pain; M54.9 Dorsalgia, unspecified; M19.90 Unspecified osteoarthritis, unspecified site; K59.00 Constipation, unspecified; N39.3 Stress incontinence (female) (male); K21.9 Gastro-esophageal reflux disease without esophagitis; F41.9 Anxiety disorder, unspecified; F32.9 Major depressive disorder, single episode, unspecified; Z68.22 Body mass index [BMI] 22.0-22.9, adult; Z88.2 Allergy status to sulfonamides; Z88.8 Allergy status to other drugs, medicaments and biological substances; Z87.891 Personal history of nicotine dependence; Z82.49 Family history of ischemic heart disease and other diseases of the circulatory system; Z98.49 Cataract extraction status, unspecified eye; Z28.21 Immunization not carried out because of patient refusal
CPT/HCPCS: 10783